=== PATIENT | female | born 1945 | race American Indian/Alaskan Native ===

== ENCOUNTER → 2016-05-26 | Outpatient (CLI) | payer MEDICARE, MEDICAID | END | disposition home or self-care (01) | LOC: MW.CHIM 09:51 | PROVIDERS: ATTEND Internal Medicine | DX: I25.10 Atherosclerotic heart disease of native coronary artery without angina pectoris (principal); I50.22 Chronic systolic (congestive) heart failure; E11.9 Type 2 diabetes mellitus without complications; Z79.4 Long term (current) use of insulin | CPT/HCPCS: 36415; 80048; 85025; 99214 ==

== ENCOUNTER → 2016-06-10 | Outpatient (CLI) | payer MEDICARE, MEDICAID | LOC: MW.CHIM 10:31 | PROVIDERS: ATTEND Internal Medicine | DX: E78.5 Hyperlipidemia, unspecified (principal); R06.09 Other forms of dyspnea | CPT/HCPCS: 36415; 80053; 82550; 83880; G0463 ==

== ENCOUNTER → 2016-07-11 | Outpatient (CLI) | payer MEDICARE, MEDICAID | LOC: MW.CHIM 08:00 | PROVIDERS: ATTEND Internal Medicine | DX: I42.0 Dilated cardiomyopathy (principal); E78.5 Hyperlipidemia, unspecified; I50.9 Heart failure, unspecified; I25.10 Atherosclerotic heart disease of native coronary artery without angina pectoris | CPT/HCPCS: 99214 ==

== ENCOUNTER → 2016-08-05 | Outpatient (CLI) | payer MEDICARE, MEDICAID | LOC: MW.LAB 13:06 | PROVIDERS: ATTEND Internal Medicine | DX: I12.9 Hypertensive chronic kidney disease with stage 1 through stage 4 chronic kidney disease, or unspecified chronic kidney disease (principal); N18.4 Chronic kidney disease, stage 4 (severe); D63.1 Anemia in chronic kidney disease; E87.2 Acidosis | CPT/HCPCS: 36415; 80069; 82310; 82652; 83516; 83883; 83970; 84165; 84550; 85025; 86038; 86160; 86225; 86235; 86256; 86334; 86803; 87340; G0463 ==

== ENCOUNTER → 2016-08-07 | Outpatient (CLI) | payer MEDICARE, MEDICAID ==
--- NOTE | 2016-08-08 15:34 | US ---
EXAM DATE: 08/07/16 PATIENT'S AGE: 70 Patient: ANJEL OWUSU Facility: [place], [place] Site . Site : 1945 Study: US Abdomen [id number]/27/2017 10:28:48 AM Ordering Physician: Helio Strauss Final Report: INDICATION: Severe chronic kidney disease, stage IV. History of donated right kidney. TECHNIQUE: Ultrasound renal bilateral. Abdul-scale and color Doppler sonographic images were acquired of the kidneys and urinary bladder. COMPARISON: None FINDINGS: Right kidney: Absent. Left kidney: 11.8 cm. Normal echotexture and cortex. No masses, stones, or hydronephrosis. Left renal artery: Proximal - PSV 49.9 cm/s, RI 0.9 Mid - PSV 36.9 cm/s, RI 0l.91 Distal - 43 cm/s, RI 1.0 Left kidney: Hilar - PSV 35.6 cm/s, RI 1.0 Inferior arcuate artery - PSV 22.7 cm/s, RI 0.9 Mid arcuate artery - PSV 14.6 cm/s, RI 0.87 Bladder: Normal in caliber and appearance. Color Doppler images demonstrate left ureteral jet. Incidental note of right pleural effusion and trace abdominal ascites. IMPRESSION: 1. Surgically absent right kidney with normal sonographic appearance of left kidney. No hydronephrosis. 2. Right pleural effusion. 3. Trace abdominal ascites. Dictated by Servando Pedro MD @ Aug 07 2016 3:53PM (Electronic Signature) Report Signed by Proxy. YESSICA
--- NOTE | 2016-08-14 16:30 | US ---
EXAM DATE: 08/07/16 PATIENT'S AGE: 70 Patient: ANJEL OWUSU Facility: [place], [place] Site . Site : 1945 Study: US Abdomen [id number]/27/2017 10:28:48 AM Ordering Physician: Helio Strauss Final Report: INDICATION: Severe chronic kidney disease, stage IV. History of donated right kidney. TECHNIQUE: Ultrasound renal bilateral. Abdul-scale and color Doppler sonographic images were acquired of the kidneys and urinary bladder. COMPARISON: None FINDINGS: Right kidney: Absent. Left kidney: 11.8 cm. Normal echotexture and cortex. No masses, stones, or hydronephrosis. Left renal artery: Proximal - PSV 49.9 cm/s, RI 0.9 Mid - PSV 36.9 cm/s, RI 0l.91 Distal - 43 cm/s, RI 1.0 Left kidney: Hilar - PSV 35.6 cm/s, RI 1.0 Inferior arcuate artery - PSV 22.7 cm/s, RI 0.9 Mid arcuate artery - PSV 14.6 cm/s, RI 0.87 Bladder: Normal in caliber and appearance. Color Doppler images demonstrate left ureteral jet. Incidental note of right pleural effusion and trace abdominal ascites. IMPRESSION: 1. Surgically absent right kidney with normal sonographic appearance of left kidney. No hydronephrosis. 2. Right pleural effusion. 3. Trace abdominal ascites. Dictated by Servando Pedro MD @ Aug 07 2016 3:53PM (Electronic Signature) Report Signed by Proxy. YESSICA
== END ==
LOC: MW.US 08:55
PROVIDERS: ATTEND Internal Medicine
DX: E87.2 Acidosis (principal); N18.4 Chronic kidney disease, stage 4 (severe); Z90.5 Acquired absence of kidney; J90 Pleural effusion, not elsewhere classified
CPT/HCPCS: 76775; 76775-26; 93979; 93979-26

== ENCOUNTER 2017-08-08 16:44 | Emergency (ER) | payer MEDICAID, MEDICARE ==
[2017-08-08] MEDS ORDERED: Sodium Chloride 0.9% 2.5 ML Syringe FLUSH PRN (16:59)
[2017-08-08] MEDS ORDERED: Ondansetron 4 MG/2 ML SDV IVPUSH ONE (16:59)
[2017-08-08] MEDS ORDERED: Sodium Chloride 0.9% 10 ML Syringe FLUSH PRN (16:59)
[2017-08-08] MEDS ORDERED: Sodium Chloride 0.9% 250 ML IV SCH (17:00)
--- NOTE | 2017-08-08 17:04 | EDM.PDOC ---
ED HPI GENERAL MEDICAL PROBLEM - General Chief Complaint: General Stated Complaint: BP ISSUES Time Seen by Provider: 08/08/17 16:50 - History of Present Illness INITIAL COMMENTS - FREE TEXT/NARRATIVE: HISTORY AND PHYSICAL: History of present illness: The patient is a 71-year-old female who has been on hemodialysis for the last 8 months due to hypertension diabetes and her normal dialysis days are Thursday and Thursday; she presents after undergoing dialysis today and removing over 3-1/2 L of fluid with not feeling right, low energy and decreased mental status and nausea with some dry heaves. According to the family at bedside she missed dialysis extremities the week before last and then on Thursday and of this week she had dialysis runs which were not maxed out. Today the increase the fluid that they took off and she started having the symptoms. The patient has a history of only having one kidney and is new to our dialysis unit. The patient does make urine and a regular amount and has no cardiac disease but does have a history of CHF hypothyroidism diabetes and this new renal failure. Currently in the ED she is awake and alert and she is complaining that she just feels very weak and she feels nauseated. Dialysis unit did not contact us with this case but the patient and her family came appear independently. She has a history of a left upper extremity fistula for this dialysis. She has no abdominal pain no chest pain and no shortness of breath. She has no focal neurologic weakness tingling and did not fall. Patient states that when she left dialysis her blood pressure was 120 systolic and she did not have any symptoms until she got up the exit and started having symptoms Review of systems: As per history of present illness and below otherwise all systems reviewed and negative. Past medical history: As per history of present illness and as reviewed below otherwise noncontributory. Surgical history: As per history of present illness and as reviewed below otherwise noncontributory. Social history: No reported history of drug or alcohol abuse. Family history: As per history of present illness and as reviewed below otherwise noncontributory. Physical exam: General: Well-developed well-nourished female who is speaking clearly and easily in the ED and is in no overt distress and vital signs are noted by me HEENT: Atraumatic, normocephalic, pupils reactive, negative for conjunctival pallor or scleral icterus, mucous membranes moist, throat clear, neck supple, nontender, trachea midline. Lungs: Clear to auscultation, breath sounds equal bilaterally, chest nontender. No work of breathing stridor or wheezing Heart: S1S2, regular, negative for clicks, rubs, or JVD. Abdomen: Soft, nondistended, nontender. Negative for masses or hepatosplenomegaly. Negative for costovertebral tenderness. Pelvis: Stable nontender. Genitourinary: Deferred. Rectal: Deferred. Extremities: Atraumatic, negative for cords or calf pain. Neurovascular unremarkable. There is a fistula with dressing present on the left upper arm and the patient has full range of motion without defects or deficits and no pedal edema Neuro: Awake, alert, oriented. Cranial nerves II through XII unremarkable. Cerebellum unremarkable. Motor and sensory unremarkable throughout. Exam nonfocal. Skin: There is no diaphoresis and turgor is within normal limits. There are no overt rashes or lesions appreciated Diagnostics: EKG chest x-ray CBC CMP UA Therapeutics: IV O2 monitor gentle IV fluids--2 50 mL bolus Repeat blood pressures are 105/61 and 108/65 after fluids. Patient says she has no nausea and she is feeling better. I've advised her not to take her blood pressure medications this evening. We'll plan on discharge home and the patient is comfortable with this care plan. Impression: Hypotension status post hemodialysis improving Definitive disposition and diagnosis as appropriate pending reevaluation and review of above. lower back Pain Score (Numeric/FACES): 6 - Related Data Allergies Allergy/AdvReac Type Severity Reaction Status Date / Time hydrochlorothiazide Allergy Airway Verified 08/08/17 16:54 Tightness hydrocodone Allergy Rash Verified 08/08/17 16:54 lisinopril Allergy Airway Verified 08/08/17 16:54 Tightness Home Meds: Home Meds Albuterol Sulfate [Proair Hfa] 1 - 2 puff IH Q4H PRN 05/11/15 [History] Gabapentin [Neurontin] 300 mg PO TID 05/11/15 [History] Losartan [Cozaar] 100 mg PO DAILY 05/11/15 [History] hydrALAZINE [Apresoline] 25 mg PO Q12HR 05/11/15 [History] metFORMIN HCl [Metformin HCl ER] 750 mg PO BIDMEALS 05/11/15 [History] traMADol [Ultram] 50 mg PO TID PRN 05/11/15 [History] Furosemide 1 tab PO DAILY 12/19/15 [History] Sertraline HCl [Zoloft] 100 mg PO DAILY 12/19/15 [History] cloNIDine [Catapres] 0.1 mg PO DAILY 12/19/15 [History] Furosemide [Lasix] 40 mg PO ASDIRECTED #1 12/24/15 [Rx] Insuln Asp Prot/Insulin Aspart [NovoLOG Mix 70-30] 10 unit SUBCUT BIDMEALS pen 12/24/15 [Rx] Isosorbide Mononitrate [Imdur] 30 mg PO DAILY #30 tab.er 12/24/15 [Rx] Levothyroxine 75 mcg PO ACBREAKFAST #30 tablet 12/24/15 [Rx] Nystatin [Nystop] 1 applic TOP TID #1 bottle 12/24/15 [Rx] Spironolactone 50 mg PO DAILY #30 tablet 12/24/15 [Rx] Past Medical History Cardiovascular History: Reports: Heart Failure, High Cholesterol, Hypertension, SOB on Exertion Respiratory History: Reports: COPD Gastrointestinal History: Reports: None 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 (See Below) Other OB/BYN History: hysterectomy Musculoskeletal History: Reports: Back Pain, Chronic Endocrine/Metabolic History: Reports: Diabetes, Type II, Hypothyroidism, Obesity /BMI 30+ - Infectious Disease History Infectious Disease History: Reports: Mumps - Past Surgical History Female Surgical History: Reports: Other (See Below) Musculoskeletal Surgical History: Reports: ORIF, Other (See Below) Social & Family History - Family History Cardiac: Reports: Other (See Below) Other Cardiac Family History: sister had heart problems Musculoskeletal: Reports: Arthritis Endocrine/Metabolic: Reports: Diabetes, type II Oncologic: Reports: Other (See Below) Other Oncologic Family History: stomach - Tobacco Use Smoking Status *Q: Former Smoker Years of Tobacco use: 20 Second Hand Smoke Exposure: No - Alcohol Use Days Per Week of Alcohol Use: 1 Number of Drinks Per Day: 3 Total Drinks Per Week: 3 - Recreational Drug Use Recreational Drug Use: No - Living Situation & Occupation Living situation: Reports: Alone ED ROS GENERAL - Review of Systems Review Of Systems: ROS reveals no pertinent complaints other than HPI. ED EXAM, GENERAL - Physical Exam Exam: See Below (see dictation) Course - Vital Signs Last Recorded V/S: Last Vital Signs Temp 35.7 C 08/08/17 17:42 Pulse 78 08/08/17 18:33 Resp 18 08/08/17 18:33 BP 108/57 L 08/08/17 18:33 Pulse Ox 93 L 08/08/17 18:33 - Orders/Labs/Meds Orders: Active Orders 24 hr Category Date Time Status Blood Glucose Check, Bedside [RC] ONETIME Care 08/08/17 16:58 Active Cardiac Monitoring [RC] . DIRECTED Care 08/08/17 16:58 Active EKG Documentation Completion [RC] STAT Care 08/08/17 16:58 Active Oxygen Therapy, ED [RC] ASDIRECTED Care 08/08/17 16:58 Active Pulse Oximetry [RC] ASDIRECTED Care 08/08/17 16:58 Active Chest 1V Frontal [CR] Stat Exams 08/08/17 16:59 Taken UA W/MICROSCOPIC [URIN] Stat Lab 08/08/17 17:48 Ordered Sodium Chloride 0.9% [Normal Saline] 250 ml Med 08/08/17 17:00 Active IV STAT Sodium Chloride 0.9% [Saline Flush] Med 08/08/17 16:59 Active 10 ml FLUSH ASDIRECTED PRN Sodium Chloride 0.9% [Saline Flush] Med 08/08/17 16:59 Active 2.5 ml FLUSH ASDIRECTED PRN Saline Lock Insert [OM.PC] Stat Oth 08/08/17 16:58 Ordered Medication Orders Sodium Chloride (Normal Saline) 250 mls @ 999 mls/hr IV STAT RONY Last Admin: 08/08/17 17:07 Dose: 999 mls/hr Sodium Chloride (Saline Flush) 10 ml FLUSH ASDIRECTED PRN PRN Reason: Keep Vein Open Last Admin: 08/08/17 17:18 Dose: 10 ml Sodium Chloride (Saline Flush) 2.5 ml FLUSH ASDIRECTED PRN PRN Reason: Keep Vein Open Last Admin: 08/08/17 17:18 Dose: 2.5 ml Labs: Laboratory Tests 08/08/17 08/08/17 08/08/17 Range/Units 17:00 17:00 17:02 WBC 8.67 (4.0-11.0) K/uL RBC 4.65 (4.30-5.90) M/uL Hgb 14.0 (12.0-16.0) g/dL Hct 42.9 (36.0-46.0) % MCV 92.3 (80.0-98.0) fL MCH 30.1 (27.0-32.0) pg MCHC 32.6 (31.0-37.0) g/dL RDW Std Deviation 49.4 (28.0-62.0) fl RDW Coeff of Alirio 15 (11.0-15.0) % Plt Count 163 (150-400) K/uL MPV 10.10 (7.40-12.00) fL Neut % (Auto) 58.6 (48.0-80.0) % Lymph % (Auto) 26.0 (16.0-40.0) % [place] % (Auto) 7.5 (0.0-15.0) % Eos % (Auto) 7.2 H (0.0-7.0) % Baso % (Auto) 0.7 (0.0-1.5) % Neut # (Auto) 5.1 (1.4-5.7) K/uL Lymph # (Auto) 2.3 (0.6-2.4) K/uL [place] # (Auto) 0.7 (0.0-0.8) K/uL Eos # (Auto) 0.6 (0.0-0.7) K/uL Baso # (Auto) 0.1 (0.0-0.1) K/uL Nucleated RBC % 0.0 /100WBC Nucleated RBCs # 0 K/uL Sodium 137 (136-145) mmol/L Potassium 3.8 (3.5-5.1) mmol/L Chloride 96 L (98-107) mmol/L Carbon Dioxide 29.7 (21.0-32.0) mmol/L BUN 24 H (7.0-18.0) mg/dL Creatinine 3.3 H (0.6-1.0) mg/dL Est Cr Clr Drug Dosing 13.89 mL/min Estimated GFR (MDRD) 13.9 ml/min Glucose 196 H (74-106) mg/dL POC Glucose 191 H (60-110) mg/dL Calcium 9.6 (8.5-10.1) mg/dL Total Bilirubin 0.5 (0.2-1.0) mg/dL AST 28 (15-37) IU/L ALT 12 L (14-63) IU/L Alkaline Phosphatase 110 (46-116) U/L Total Protein 9.9 H (6.4-8.2) g/dL Albumin 3.9 (3.4-5.0) g/dL Globulin 6.0 H (2.0-3.5) g/dL Albumin/Globulin Ratio 0.7 L (1.3-2.8) Urine Color Urine Appearance Urine pH (5.0-8.0) Ur Specific [place] (1.001-1.035) Urine Protein (NEGATIVE) mg/dL Urine Glucose (UA) (NEGATIVE) mg/dL Urine Ketones (NEGATIVE) mg/dL Urine Occult Blood (NEGATIVE) Urine Nitrite (NEGATIVE) Urine Bilirubin (NEGATIVE) Urine Urobilinogen (<2.0) EU/dL Ur Leukocyte Esterase (NEGATIVE) Urine RBC (0-2/HPF) Urine WBC (0-5/HPF) Ur Epithelial Cells (NONE-FEW) Urine Bacteria (NEGATIVE) 08/08/17 Range/Units 17:48 WBC (4.0-11.0) K/uL RBC (4.30-5.90) M/uL Hgb (12.0-16.0) g/dL Hct (36.0-46.0) % MCV (80.0-98.0) fL MCH (27.0-32.0) pg MCHC (31.0-37.0) g/dL RDW Std Deviation (28.0-62.0) fl RDW Coeff of Alirio (11.0-15.0) % Plt Count (150-400) K/uL MPV (7.40-12.00) fL Neut % (Auto) (48.0-80.0) % Lymph % (Auto) (16.0-40.0) % [place] % (Auto) (0.0-15.0) % Eos % (Auto) (0.0-7.0) % Baso % (Auto) (0.0-1.5) % Neut # (Auto) (1.4-5.7) K/uL Lymph # (Auto) (0.6-2.4) K/uL [place] # (Auto) (0.0-0.8) K/uL Eos # (Auto) (0.0-0.7) K/uL Baso # (Auto) (0.0-0.1) K/uL Nucleated RBC % /100WBC Nucleated RBCs # K/uL Sodium (136-145) mmol/L Potassium (3.5-5.1) mmol/L Chloride (98-107) mmol/L Carbon Dioxide (21.0-32.0) mmol/L BUN (7.0-18.0) mg/dL Creatinine (0.6-1.0) mg/dL Est Cr Clr Drug Dosing mL/min Estimated GFR (MDRD) ml/min Glucose (74-106) mg/dL POC Glucose (60-110) mg/dL Calcium (8.5-10.1) mg/dL Total Bilirubin (0.2-1.0) mg/dL AST (15-37) IU/L ALT (14-63) IU/L Alkaline Phosphatase (46-116) U/L Total Protein (6.4-8.2) g/dL Albumin (3.4-5.0) g/dL Globulin (2.0-3.5) g/dL Albumin/Globulin Ratio (1.3-2.8) Urine Color YELLOW Urine Appearance HAZY Urine pH 8.5 H (5.0-8.0) Ur Specific [place] 1.020 (1.001-1.035) Urine Protein >=300 (NEGATIVE) mg/dL Urine Glucose (UA) 100 H (NEGATIVE) mg/dL Urine Ketones NEGATIVE (NEGATIVE) mg/dL Urine Occult Blood NEGATIVE (NEGATIVE) Urine Nitrite NEGATIVE (NEGATIVE) Urine Bilirubin NEGATIVE (NEGATIVE) Urine Urobilinogen 0.2 (<2.0) EU/dL Ur Leukocyte Esterase NEGATIVE (NEGATIVE) Urine RBC 1-2 (0-2/HPF) Urine WBC 2-4 (0-5/HPF) Ur Epithelial Cells MODERATE (NONE-FEW) Urine Bacteria FEW (NEGATIVE) Meds: Medications Generic Name Dose Route Start Last Admin Trade Name Freq PRN Reason Stop Dose Admin Sodium Chloride 250 mls @ 999 mls/hr 08/08/17 17:00 08/08/17 17:07 Normal Saline IV 999 mls/hr STAT RONY Administration Sodium Chloride 10 ml 08/08/17 16:59 08/08/17 17:18 Saline Flush FLUSH 10 ml ASDIRECTED PRN Administration Keep Vein Open Sodium Chloride 2.5 ml 08/08/17 16:59 08/08/17 17:18 Saline Flush FLUSH 2.5 ml ASDIRECTED PRN Administration Keep Vein Open Discontinued Medications Generic Name Dose Route Start Last Admin Trade Name Freq PRN Reason Stop Dose Admin Ondansetron HCl 4 mg 08/08/17 16:59 08/08/17 17:08 Zofran IVPUSH 08/08/17 17:00 4 mg ONETIME ONE Administration Departure - Departure Time of Disposition: 18:49 Disposition: Home, Self-Care 01 Condition: Good Clinical Impression: Hypotension Qualifiers: Hypotension type: unspecified hypotension type Qualified Code(s): I95.9 - Hypotension, unspecified - Discharge Information Referrals: PCP,Unknown [Primary Care Provider] - Forms: ED Department Discharge Additional Instructions: The following information is given to patients seen in the emergency department who are being discharged to home. This information is to outline your options for follow-up care. We provide all patients seen in our emergency department with a follow-up referral. The need for follow-up, as well as the timing and circumstances, are variable depending upon the specifics of your emergency department visit. If you don't have a primary care physician on staff, we will provide you with a referral. We always advise you to contact your personal physician following an emergency department visit to inform them of the circumstance of the visit and for follow-up with them and/or the need for any referrals to a consulting specialist. The emergency department will also refer you to a specialist when appropriate. This referral assures that you have the opportunity for followup care with a specialist. All of these measure are taken in an effort to provide you with optimal care, which includes your followup. Under all circumstances we always encourage you to contact your private physician who remains a resource for coordinating your care. When calling for followup care, please make the office aware that this follow-up is from your recent emergency room visit. If for any reason you are refused follow-up, please contact the [facility] emergency department at and ask to speak to the emergency department charge nurse. [facility] [address] [place] [address] Please go to your dialysis appointment as scheduled on Thursday and do not take your blood pressure medications this evening. Please eat meals and rest. Return to ER as needed and as discussed - My Orders Last 24 Hours: My Active Orders 08/08/17 16:58 Blood Glucose Check, Bedside [RC] ONETIME Cardiac Monitoring [RC] . DIRECTED EKG Documentation Completion [RC] STAT Oxygen Therapy, ED [RC] ASDIRECTED Pulse Oximetry [RC] ASDIRECTED Saline Lock Insert [OM.PC] Stat 08/08/17 16:59 Chest 1V Frontal [CR] Stat Sodium Chloride 0.9% [Saline Flush] 10 ml FLUSH ASDIRECTED PRN Sodium Chloride 0.9% [Saline Flush] 2.5 ml FLUSH ASDIRECTED PRN 08/08/17 17:00 Sodium Chloride 0.9% [Normal Saline] 250 ml IV STAT 08/08/17 17:48 UA W/MICROSCOPIC [URIN] Stat - Assessment/Plan Last 24 Hours: My Active Orders 08/08/17 16:58 Blood Glucose Check, Bedside [RC] ONETIME Cardiac Monitoring [RC] . DIRECTED EKG Documentation Completion [RC] STAT Oxygen Therapy, ED [RC] ASDIRECTED Pulse Oximetry [RC] ASDIRECTED Saline Lock Insert [OM.PC] Stat 08/08/17 16:59 Chest 1V Frontal [CR] Stat Sodium Chloride 0.9% [Saline Flush] 10 ml FLUSH ASDIRECTED PRN Sodium Chloride 0.9% [Saline Flush] 2.5 ml FLUSH ASDIRECTED PRN 08/08/17 17:00 Sodium Chloride 0.9% [Normal Saline] 250 ml IV STAT 08/08/17 17:48 UA W/MICROSCOPIC [URIN] Stat
[2017-08-08 19:05] VITALS: BP 114/62
--- NOTE | 2017-08-10 14:21 | CR ---
EXAM DATE: 08/08/17 PATIENT'S AGE: 71 Patient: ANJEL OWUSU Facility: [place], [place] Site . Site : 1945 Study: XRay Chest [id number]/28/2018 6:20:39 PM Ordering Physician: Shari Schultz Final Report: INDICATION: pain/sob/ bp issues FINDINGS: A single portable chest x-ray shows a normal cardiac silhouette. The lungs are hypoventilated and show no focal pulmonary opacities. Sharp pleural margins. No pneumothorax. Impression : No evidence of acute pulmonary abnormalities. Dictated by Mikal Harrington MD @ 08/08/2017 6:57:47 PM Dictated by: Mikal Harrington MD @ 08/08/2017 18:58:01 (Electronic Signature) Report Signed by Proxy. [facility]ITALScotty
== END 2017-08-08 19:05 | disposition home or self-care (01) ==
LOC: MW.ED 16:44
DX: I95.9 Hypotension, unspecified (principal); I11.0 Hypertensive heart disease with heart failure; I50.9 Heart failure, unspecified; E78.00 Pure hypercholesterolemia, unspecified; J44.9 Chronic obstructive pulmonary disease, unspecified; E11.9 Type 2 diabetes mellitus without complications; N19 Unspecified kidney failure; E66.9 Obesity, unspecified; Z87.891 Personal history of nicotine dependence; Z88.5 Allergy status to narcotic agent; Z88.8 Allergy status to other drugs, medicaments and biological substances; Z79.4 Long term (current) use of insulin; Z79.899 Other long term (current) drug therapy; Z68.30 Body mass index [BMI] 30.0-30.9, adult; Z99.2 Dependence on renal dialysis
CPT/HCPCS: 71045; 80053; 81001; 82962; 85025; 93005; 96374; 99285; J2405; J7050; 99284

== ENCOUNTER 2017-10-16 17:49 | Observation (INO) | payer MEDICAID ==
[2017-10-16] MEDS ORDERED: Sodium Chloride 0.9% 2.5 ML Syringe FLUSH PRN (17:59)
[2017-10-16] MEDS ORDERED: Sodium Chloride 0.9% 10 ML Syringe FLUSH PRN (17:59)
[2017-10-16] MEDS ORDERED: Sodium Chloride 0.9% 500 ML IV SCH (18:00)
--- NOTE | 2017-10-16 18:13 | EDM.PDOC ---
ED HPI GENERAL MEDICAL PROBLEM - General Chief Complaint: Neuro Symptoms/Deficits Stated Complaint: DIZZY Time Seen by Provider: 10/16/17 20:20 Source of Information: Reports: Patient History Limitations: Reports: No Limitations - History of Present Illness INITIAL COMMENTS - FREE TEXT/NARRATIVE: HISTORY AND PHYSICAL: History of present illness: [Crissy is a 72-year-old female here for dizzinss. Patient states she was sitting outside smoking a cigarette after finishing dialysis about 10 minutes prior. She states she started feeling dizzy while sitting there. She denies any chest pain/pressure, SOB, headache, palpitations. She denies injury or fall. She reports that she feels weak and eyes blurry. Patients relative reports she had 1L taken off today. Patient had similar episode in July after she had dialysis. Patient given IV fluids for hypotension. Past medical history of hypertension, diabetes, hypothyroidism. She reports history of CHF. ] Review of systems: As per history of present illness and below otherwise all systems reviewed and negative. Past medical history: As per history of present illness and as reviewed below otherwise noncontributory. Surgical history: As per history of present illness and as reviewed below otherwise noncontributory. Social history: No reported history of drug or alcohol abuse. Family history: As per history of present illness and as reviewed below otherwise noncontributory. Physical exam: HEENT: Atraumatic, normocephalic, pupils reactive, negative for conjunctival pallor or scleral icterus, mucous membranes moist, throat clear, neck supple, nontender, trachea midline. Lungs: Clear to auscultation, breath sounds equal bilaterally, chest nontender. Heart: S1S2, regular, negative for clicks, rubs, or JVD. Abdomen: Soft, nondistended, nontender. Negative for masses or hepatosplenomegaly. Negative for costovertebral tenderness. Pelvis: Stable nontender. Genitourinary: Deferred. Rectal: Deferred. Extremities: Atraumatic, negative for cords or calf pain. Neurovascular unremarkable. Neuro: Awake, alert, oriented. Cranial nerves II through XII unremarkable. Cerebellum unremarkable. Motor and sensory unremarkable throughout. Exam nonfocal. Notes: Diagnostics: [CBC, CMP, Troponin, UA, PT/INR EKG - borderline ST depression] Therapeutics: [IV NS 500 mL x 2] Impression: [Hypotension] Plan: [Discussed with Dr. Morales, patient accepted for admission for observation on telemetry] Definitive disposition and diagnosis as appropriate pending reevaluation and review of above. - Related Data Allergies Allergy/AdvReac Type Severity Reaction Status Date / Time hydrochlorothiazide Allergy Airway Verified 10/16/17 17:52 Tightness hydrocodone Allergy Rash Verified 10/16/17 17:52 lisinopril Allergy Airway Verified 10/16/17 17:52 Tightness Home Meds: Home Meds Albuterol Sulfate [Proair Hfa] 1 - 2 puff IH Q4H PRN 05/11/15 [History] Gabapentin [Neurontin] 300 mg PO TID 05/11/15 [History] Losartan [Cozaar] 100 mg PO DAILY 05/11/15 [History] hydrALAZINE [Apresoline] 25 mg PO Q12HR 05/11/15 [History] metFORMIN HCl [Metformin HCl ER] 750 mg PO BIDMEALS 05/11/15 [History] traMADol [Ultram] 50 mg PO TID PRN 05/11/15 [History] Furosemide 1 tab PO DAILY 12/19/15 [History] Sertraline HCl [Zoloft] 100 mg PO DAILY 12/19/15 [History] cloNIDine [Catapres] 0.1 mg PO DAILY 12/19/15 [History] Furosemide [Lasix] 40 mg PO ASDIRECTED #1 12/24/15 [Rx] Insuln Asp Prot/Insulin Aspart [NovoLOG Mix 70-30] 10 unit SUBCUT BIDMEALS pen 12/24/15 [Rx] Isosorbide Mononitrate [Imdur] 30 mg PO DAILY #30 tab.er 12/24/15 [Rx] Levothyroxine 75 mcg PO ACBREAKFAST #30 tablet 12/24/15 [Rx] Nystatin [Nystop] 1 applic TOP TID #1 bottle 12/24/15 [Rx] Spironolactone 50 mg PO DAILY #30 tablet 12/24/15 [Rx] Past Medical History HEENT History: Reports: None Cardiovascular History: Reports: Heart Failure, High Cholesterol, Hypertension, SOB on Exertion Respiratory History: Reports: COPD Gastrointestinal History: Reports: None Genitourinary History: Reports: None PRODUCTION CONTROL COORDINATOR History: Reports: Other (See Below) Other PRODUCTION CONTROL COORDINATOR History: hysterectomy Musculoskeletal History: Reports: Back Pain, Chronic Neurological History: Reports: None Psychiatric History: Reports: None Endocrine/Metabolic History: Reports: Diabetes, Type II, Hypothyroidism, Obesity /BMI 30+ Hematologic History: Reports: None Immunologic History: Reports: None Oncologic (Cancer) History: Reports: None Dermatologic History: Reports: None - Infectious Disease History Infectious Disease History: Reports: Hepatitis C - Past Surgical History Head Surgeries/Procedures: Reports: None HEENT Surgical History: Reports: None Cardiovascular Surgical History: Reports: None Respiratory Surgical History: Reports: None GI Surgical History: Reports: None Female Surgical History: Reports: Other (See Below) Neurological Surgical History: Reports: None Musculoskeletal Surgical History: Reports: ORIF, Other (See Below) Oncologic Surgical History: Reports: None Dermatological Surgical History: Reports: None Social & Family History - Family History Family Medical History: Noncontributory Cardiac: Reports: Other (See Below) Other Cardiac Family History: sister had heart problems Musculoskeletal: Reports: Arthritis Endocrine/Metabolic: Reports: Diabetes, type II Oncologic: Reports: Other (See Below) Other Oncologic Family History: stomach - Tobacco Use Smoking Status *Q: Current Every Day Smoker Years of Tobacco use: 50 Packs/Tins Daily: 0.1 - Caffeine Use Caffeine Use: Reports: Coffee - Recreational Drug Use Recreational Drug Use: No - Living Situation & Occupation Living situation: Reports: Alone ED ROS GENERAL - Review of Systems Review Of Systems: ROS reveals no pertinent complaints other than HPI. ED EXAM, NEURO - Physical Exam Exam: See Below Course - Vital Signs Last Recorded V/S: Last Vital Signs Temp 36.0 C 10/16/17 17:53 Pulse 76 10/16/17 18:25 Resp 24 H 10/16/17 18:25 BP 87/53 L 10/16/17 18:25 Pulse Ox 92 L 10/16/17 18:25 - Orders/Labs/Meds Orders: Active Orders 24 hr Category Date Time Status Admission Status [Patient Status] [ADT] Stat ADT 10/16/17 20:16 Ordered Cardiac Monitoring [RC] . DIRECTED Care 10/16/17 17:58 Active EKG Documentation Completion [RC] STAT Care 10/16/17 17:58 Active Pulse Oximetry [RC] ASDIRECTED Care 10/16/17 17:58 Active CULTURE URINE [RM] Stat Lab 10/16/17 17:59 Ordered UA W/MICROSCOPIC [URIN] Stat Lab 10/16/17 17:59 Ordered Sodium Chloride 0.9% [Normal Saline] 1,000 ml Med 10/16/17 18:50 Active IV ONETIME Sodium Chloride 0.9% [Normal Saline] 500 ml Med 10/16/17 18:00 Active IV STAT Sodium Chloride 0.9% [Saline Flush] Med 10/16/17 17:59 Active 10 ml FLUSH ASDIRECTED PRN Sodium Chloride 0.9% [Saline Flush] Med 10/16/17 17:59 Active 2.5 ml FLUSH ASDIRECTED PRN Saline Lock Insert [OM.PC] Stat Oth 10/16/17 17:58 Ordered Medication Orders Sodium Chloride (Normal Saline) 500 mls @ 999 mls/hr IV STAT [facility] Last Admin: 10/16/17 18:14 Dose: 999 mls/hr Sodium Chloride (Normal Saline) 1,000 mls @ 125 mls/hr IV ONETIME ONE Stop: 10/17/17 02:49 Last Admin: 10/16/17 18:50 Dose: 999 mls/hr Sodium Chloride (Saline Flush) 10 ml FLUSH ASDIRECTED PRN PRN Reason: Keep Vein Open Sodium Chloride (Saline Flush) 2.5 ml FLUSH ASDIRECTED PRN PRN Reason: Keep Vein Open Labs: Laboratory Tests 10/16/17 10/16/17 10/16/17 Range/Units 17:59 17:59 17:59 WBC 9.48 (4.0-11.0) K/uL RBC 4.08 L (4.30-5.90) M/uL Hgb 12.4 (12.0-16.0) g/dL Hct 38.2 (36.0-46.0) % MCV 93.6 (80.0-98.0) fL MCH 30.4 (27.0-32.0) pg MCHC 32.5 (31.0-37.0) g/dL RDW Std Deviation 56.4 (28.0-62.0) fl RDW Coeff of Alirio 16 H (11.0-15.0) % Plt Count 197 (150-400) K/uL MPV 9.50 (7.40-12.00) fL Neut % (Auto) 47.8 L (48.0-80.0) % Lymph % (Auto) 36.7 (16.0-40.0) % [place] % (Auto) 6.1 (0.0-15.0) % Eos % (Auto) 8.6 H (0.0-7.0) % Baso % (Auto) 0.8 (0.0-1.5) % Neut # (Auto) 4.5 (1.4-5.7) K/uL Lymph # (Auto) 3.5 H (0.6-2.4) K/uL [place] # (Auto) 0.6 (0.0-0.8) K/uL Eos # (Auto) 0.8 H (0.0-0.7) K/uL Baso # (Auto) 0.1 (0.0-0.1) K/uL Nucleated RBC % 0.0 /100WBC Nucleated RBCs # 0 K/uL INR 0.96 Sodium 136 (136-145) mmol/L Potassium 2.9 L (3.5-5.1) mmol/L Chloride 96 L (98-107) mmol/L Carbon Dioxide 29.9 (21.0-32.0) mmol/L BUN 9 (7.0-18.0) mg/dL Creatinine 2.5 H (0.6-1.0) mg/dL Est Cr Clr Drug Dosing 18.08 mL/min Estimated GFR (MDRD) 19.0 ml/min Glucose 160 H (74-106) mg/dL Calcium 9.2 (8.5-10.1) mg/dL Total Bilirubin 0.4 (0.2-1.0) mg/dL AST 28 (15-37) IU/L ALT 30 (14-63) IU/L Alkaline Phosphatase 149 H (46-116) U/L Troponin I < 0.050 (0.000-0.056) ng/mL Total Protein 9.1 H (6.4-8.2) g/dL Albumin 3.7 (3.4-5.0) g/dL Globulin 5.4 H (2.0-3.5) g/dL Albumin/Globulin Ratio 0.7 L (1.3-2.8) Lipase 223 (73-393) U/L Meds: Medications Generic Name Dose Route Start Last Admin Trade Name Freq PRN Reason Stop Dose Admin Sodium Chloride 500 mls @ 999 mls/hr 10/16/17 18:00 10/16/17 18:14 Normal Saline IV 999 mls/hr STAT RONY Administration Sodium Chloride 1,000 mls @ 125 mls/hr 10/16/17 18:50 10/16/17 18:50 Normal Saline IV 10/17/17 02:49 999 mls/hr ONETIME ONE Administration Sodium Chloride 10 ml 10/16/17 17:59 Saline Flush FLUSH ASDIRECTED PRN Keep Vein Open Sodium Chloride 2.5 ml 10/16/17 17:59 Saline Flush FLUSH ASDIRECTED PRN Keep Vein Open Discontinued Medications Generic Name Dose Route Start Last Admin Trade Name Freq PRN Reason Stop Dose Admin Potassium Chloride 40 meq 10/16/17 19:43 Klor-Con M20 PO 10/16/17 19:44 ONETIME ONE Departure - Departure Time of Disposition: 20:19 Disposition: Refer to Observation Clinical Impression: Hypotension Qualifiers: Hypotension type: unspecified hypotension type Qualified Code(s): I95.9 - Hypotension, unspecified - Discharge Information Referrals: PCP,None [Primary Care Provider] - Forms: ED Department Discharge - My Orders Last 24 Hours: My Active Orders 10/16/17 17:58 Cardiac Monitoring [RC] . DIRECTED EKG Documentation Completion [RC] STAT Pulse Oximetry [RC] ASDIRECTED Saline Lock Insert [OM.PC] Stat 10/16/17 17:59 CULTURE URINE [RM] Stat UA W/MICROSCOPIC [URIN] Stat Sodium Chloride 0.9% [Saline Flush] 10 ml FLUSH ASDIRECTED PRN Sodium Chloride 0.9% [Saline Flush] 2.5 ml FLUSH ASDIRECTED PRN 10/16/17 18:00 Sodium Chloride 0.9% [Normal Saline] 500 ml IV STAT 10/16/17 18:50 Sodium Chloride 0.9% [Normal Saline] 1,000 ml IV ONETIME 10/16/17 20:16 Admission Status [Patient Status] [ADT] Stat - Assessment/Plan Last 24 Hours: My Active Orders 10/16/17 17:58 Cardiac Monitoring [RC] . DIRECTED EKG Documentation Completion [RC] STAT Pulse Oximetry [RC] ASDIRECTED Saline Lock Insert [OM.PC] Stat 10/16/17 17:59 CULTURE URINE [RM] Stat UA W/MICROSCOPIC [URIN] Stat Sodium Chloride 0.9% [Saline Flush] 10 ml FLUSH ASDIRECTED PRN Sodium Chloride 0.9% [Saline Flush] 2.5 ml FLUSH ASDIRECTED PRN 10/16/17 18:00 Sodium Chloride 0.9% [Normal Saline] 500 ml IV STAT 10/16/17 18:50 Sodium Chloride 0.9% [Normal Saline] 1,000 ml IV ONETIME 10/16/17 20:16 Admission Status [Patient Status] [ADT] Stat
[2017-10-16 18:33] LABS: CHLORIDE,CL 96 mmol/L (98-107); SODIUM,NA 136 mmol/L (136-145)
[2017-10-16] MEDS ORDERED: Sodium Chloride 0.9% 1,000 ML IV ONE (18:50)
--- NOTE | 2017-10-16 19:33 | CR ---
EXAM DATE: 10/16/17 PATIENT'S AGE: 72 Patient: ANJEL OWUSU Facility: [place], [place] Site . Site : 1945 Study: XRay Chest [id number]/[id number] 6:36:39 PM Ordering Physician: Doctor Camejo Final Report: Dizzy lethargic after dialysis Comparison chest x-ray 08/08/2017 FINDINGS: Low lung volumes. Slight prominence of the cardiac silhouette appears no acute airspace or interstitial process. No effusion or pneumothorax. IMPRESSION: 1. No acute pulmonary process. Dictated by Natalie Harrington MD @ Oct 16 2017 6:55PM (Electronic Signature) Report Signed by Proxy. YESSICA
[2017-10-16] MEDS ORDERED: Potassium Chloride 20 MEQ Tab.ER PO ONE (19:43)
--- NOTE | 2017-10-16 20:39 | PCM.HP ---
H&P History of Present Illness - General Admit Problem/Dx: Admission Diagnosis/Problem Admission Diagnosis/Problem Hypotension - History of Present Illness Initial Comments - Free Text/Narative: 72 yo female with pmh HTN, DM and ESRD who presents to the ED with dizziness. Patient does dialysis MWF but as she missed Thursday she doubled up on and Thursday. After dialysis today she was outside waiting for a ride when she became dizzy and lightheaded. She went to the ED where her blood pressure with in the 80s systolic. She reportedly got one liter removed yesterday and today. She feels fatigued. - Related Data Allergies/Adverse Reactions: Allergies Allergy/AdvReac Type Severity Reaction Status Date / Time hydrochlorothiazide Allergy Airway Verified 10/16/17 17:52 Tightness hydrocodone Allergy Rash Verified 10/16/17 17:52 lisinopril Allergy Airway Verified 10/16/17 17:52 Tightness Home Medications: Home Meds Albuterol Sulfate [Proair Hfa] 1 - 2 puff IH Q4H PRN 05/11/15 [History] Gabapentin [Neurontin] 300 mg PO QID 05/11/15 [History] Losartan [Cozaar] 100 mg PO DAILY 05/11/15 [History] traMADol [Ultram] 50 mg PO QID 05/11/15 [History] Sertraline HCl [Zoloft] 100 mg PO DAILY 12/19/15 [History] Albuterol [Proventil Neb Soln] 2.5 mg INH QID 10/17/17 [History] Calcium Acetate [PhosLo] 667 mg PO TIDMEALS 10/17/17 [History] Clopidogrel [Plavix] 75 mg PO DAILY 10/17/17 [History] Insuln Asp Prot/Insulin Aspart [NovoLOG Mix 70-30] 40 unit SUBCUT BIDMEALS 10/17 [History] Isosorbide Mononitrate [Imdur] 60 mg PO DAILY 10/17/17 [History] Levothyroxine Sodium 137 mcg PO ACBREAKFAST 10/17/17 [History] Losartan [Cozaar] 100 mg PO DAILY 10/17/17 [History] Metolazone 5 mg PO MOFR@0800 10/17/17 [History] Pantoprazole Sodium [Protonix] 40 mg PO DAILY 10/17/17 [History] Sevelamer HCl [Renagel] 1,600 mg PO TIDMEALS 10/17/17 [History] amLODIPine Besylate [Amlodipine Besylate] 5 mg PO DAILY 10/17/17 [History] atorvaSTATin Calcium [Atorvastatin Calcium] 80 mg PO BEDTIME 10/17/17 [History] Past Medical History HEENT History: Reports: None Cardiovascular History: Reports: Heart Failure, High Cholesterol, Hypertension, SOB on Exertion Respiratory History: Reports: COPD Gastrointestinal History: Reports: None Genitourinary History: Reports: None PHARMACEUTICAL REPRESENTATIVE History: Reports: Other (See Below) Other OB/BYN History: hysterectomy Musculoskeletal History: Reports: Back Pain, Chronic Neurological History: Reports: None Psychiatric History: Reports: None Endocrine/Metabolic History: Reports: Diabetes, Type II, Hypothyroidism, Obesity /BMI 30+ Hematologic History: Reports: None Immunologic History: Reports: None Oncologic (Cancer) History: Reports: None Dermatologic History: Reports: None - Infectious Disease History Infectious Disease History: Reports: Hepatitis C - Past Surgical History Head Surgeries/Procedures: Reports: None HEENT Surgical History: Reports: None Cardiovascular Surgical History: Reports: None Respiratory Surgical History: Reports: None GI Surgical History: Reports: None Female Surgical History: Reports: Other (See Below) Neurological Surgical History: Reports: None Musculoskeletal Surgical History: Reports: ORIF, Other (See Below) Oncologic Surgical History: Reports: None Dermatological Surgical History: Reports: None Social & Family History - Family History Family Medical History: Noncontributory Cardiac: Reports: Other (See Below) Other Cardiac Family History: sister had heart problems Musculoskeletal: Reports: Arthritis Endocrine/Metabolic: Reports: Diabetes, type II Oncologic: Reports: Other (See Below) Other Oncologic Family History: stomach - Tobacco Use Smoking Status *Q: Current Every Day Smoker Years of Tobacco use: 50 Packs/Tins Daily: 0.1 - Caffeine Use Caffeine Use: Reports: Coffee - Recreational Drug Use Recreational Drug Use: No - Living Situation & Occupation Living situation: Reports: Alone H&P Review of Systems - Review of Systems: Review Of Systems: ROS reveals no pertinent complaints other than HPI. Exam - Vital Signs Vital Signs: Last Vital Signs Temp 36.0 C 10/16/17 17:53 Pulse 73 10/16/17 20:20 Resp 12 10/16/17 20:20 BP 178/76 H 10/16/17 20:20 Pulse Ox 98 10/16/17 20:20 Weight: 81.647 kg - Exam General: Alert, Oriented Neck: Supple, Trachea Midline Lungs: Clear to Auscultation, Normal Respiratory Effort Cardiovascular: Regular Rate, Regular Rhythm GI/Abdominal Exam: Soft, Non-Tender Extremities: Normal Inspection, Non-Tender, No Pedal Edema Skin: Warm, Dry, Intact Neurological: No: Focal Deficit - Patient Data Lab Results Last 24 hrs: Laboratory Results - last 24 hr 10/16/17 10/16/17 10/16/17 Range/Units 17:59 17:59 17:59 WBC 9.48 (4.0-11.0) K/uL RBC 4.08 L (4.30-5.90) M/uL Hgb 12.4 (12.0-16.0) g/dL Hct 38.2 (36.0-46.0) % MCV 93.6 (80.0-98.0) fL MCH 30.4 (27.0-32.0) pg MCHC 32.5 (31.0-37.0) g/dL RDW Std Deviation 56.4 (28.0-62.0) fl RDW Coeff of Alirio 16 H (11.0-15.0) % Plt Count 197 (150-400) K/uL MPV 9.50 (7.40-12.00) fL Neut % (Auto) 47.8 L (48.0-80.0) % Lymph % (Auto) 36.7 (16.0-40.0) % [place] % (Auto) 6.1 (0.0-15.0) % Eos % (Auto) 8.6 H (0.0-7.0) % Baso % (Auto) 0.8 (0.0-1.5) % Neut # (Auto) 4.5 (1.4-5.7) K/uL Lymph # (Auto) 3.5 H (0.6-2.4) K/uL [place] # (Auto) 0.6 (0.0-0.8) K/uL Eos # (Auto) 0.8 H (0.0-0.7) K/uL Baso # (Auto) 0.1 (0.0-0.1) K/uL Nucleated RBC % 0.0 /100WBC Nucleated RBCs # 0 K/uL INR 0.96 Sodium 136 (136-145) mmol/L Potassium 2.9 L (3.5-5.1) mmol/L Chloride 96 L (98-107) mmol/L Carbon Dioxide 29.9 (21.0-32.0) mmol/L BUN 9 (7.0-18.0) mg/dL Creatinine 2.5 H (0.6-1.0) mg/dL Est Cr Clr Drug Dosing 18.08 mL/min Estimated GFR (MDRD) 19.0 ml/min Glucose 160 H (74-106) mg/dL Calcium 9.2 (8.5-10.1) mg/dL Total Bilirubin 0.4 (0.2-1.0) mg/dL AST 28 (15-37) IU/L ALT 30 (14-63) IU/L Alkaline Phosphatase 149 H (46-116) U/L Troponin I < 0.050 (0.000-0.056) ng/mL Total Protein 9.1 H (6.4-8.2) g/dL Albumin 3.7 (3.4-5.0) g/dL Globulin 5.4 H (2.0-3.5) g/dL Albumin/Globulin Ratio 0.7 L (1.3-2.8) Lipase 223 (73-393) U/L Result Diagrams: 10/16/17 17:59 10/16/17 17:59 Problem List Initiated/Reviewed/Updated: Yes Orders Last 24hrs: Active Orders 24 hr Category Date Time Status Admission Status [Patient Status] [ADT] Stat ADT 10/16/17 20:16 Active Cardiac Monitoring [RC] . DIRECTED Care 10/16/17 17:58 Active EKG Documentation Completion [RC] STAT Care 10/16/17 17:58 Active Oxygen Therapy [RC] PRN Care 10/16/17 20:34 Ordered Pulse Oximetry [RC] ASDIRECTED Care 10/16/17 17:58 Active Up ad Kristan [RC] ASDIRECTED Care 10/16/17 20:34 Ordered VTE/DVT Education [RC] PER UNIT ROUTINE Care 10/16/17 20:34 Ordered Vital Signs [RC] Q4H Care 10/16/17 20:34 Ordered [place] [employer] Diet [DIET] Diet 10/16/17 Breakfast Ordered CULTURE URINE [RM] Stat Lab 10/16/17 17:59 Ordered UA W/MICROSCOPIC [URIN] Stat Lab 10/16/17 17:59 Ordered Gabapentin [Neurontin] Med 10/16/17 22:00 Ordered 300 mg PO TID Insulin Aspart [NovoLOG] Med 10/17/17 07:30 Ordered See Protocol SUBCUT TIDAC Isosorbide Mononitrate [Imdur] Med 10/17/17 09:00 Ordered 30 mg PO DAILY Levothyroxine Med 10/17/17 07:30 Ordered 75 mcg PO ACBREAKFAST Losartan Med 10/17/17 09:00 Ordered 100 mg PO DAILY Sertraline [Zoloft] Med 10/17/17 09:00 Ordered 100 mg PO DAILY Sodium Chloride 0.9% [Normal Saline] 1,000 ml Med 10/16/17 18:50 Active IV ONETIME Sodium Chloride 0.9% [Normal Saline] 500 ml Med 10/16/17 18:00 Active IV STAT Sodium Chloride 0.9% [Saline Flush] Med 10/16/17 17:59 Active 10 ml FLUSH ASDIRECTED PRN Sodium Chloride 0.9% [Saline Flush] Med 10/16/17 17:59 Active 2.5 ml FLUSH ASDIRECTED PRN Spironolactone [Spironolactone] Med 10/17/17 09:00 Ordered 50 mg PO DAILY cloNIDine [Catapres] Med 10/17/17 09:00 Ordered 0.1 mg PO DAILY metFORMIN Med 10/17/17 08:00 Ordered 750 mg PO BIDMEALS Saline Lock Insert [OM.PC] Stat Oth 10/16/17 17:58 Ordered Sequential Compression Device [OM.PC] Per Unit Routine Oth 10/16/17 20:34 Ordered Resuscitation Status Routine Resus Stat 10/16/17 20:34 Ordered Medication Orders Clonidine HCl (Catapres) 0.1 mg PO DAILY RONY Gabapentin (Neurontin) 300 mg PO TID RONY Sodium Chloride (Normal Saline) 500 mls @ 999 mls/hr IV STAT RONY Last Admin: 10/16/17 18:14 Dose: 999 mls/hr Sodium Chloride (Normal Saline) 1,000 mls @ 125 mls/hr IV ONETIME ONE Stop: 10/17/17 02:49 Last Infusion: 10/16/17 19:25 Dose: 125 mls/hr Admin: 10/16/17 18:50 Dose: 999 mls/hr Insulin Aspart (Novolog) 0 unit SUBCUT TIDAC RONY; Protocol Isosorbide Mononitrate (Imdur) 30 mg PO DAILY [facility] Sodium Chloride (Saline Flush) 10 ml FLUSH ASDIRECTED PRN PRN Reason: Keep Vein Open Sodium Chloride (Saline Flush) 2.5 ml FLUSH ASDIRECTED PRN PRN Reason: Keep Vein Open Assessment/Plan Comment:: 72 yo female admitted for dehydration. She was given one liter of normal saline. She had resolution of her dizziness. She was discharged home to have follow up at the dialysis center Thursday.
[2017-10-16] MEDS: Gabapentin 300 MG Cap PO SCH (21:54)
[2017-10-17] MEDS: Gabapentin 300 MG Cap PO SCH (05:10)
[2017-10-17] MEDS: Insulin Aspart 100 Units/ML 3 ML Pen SUBCUT SCH ×2 (06:40→12:12)
[2017-10-17] MEDS ORDERED: Levothyroxine 75 MCG Tab PO SCH (07:30)
[2017-10-17] MEDS ORDERED: METFORMIN 750 MG PO SCH (08:00)
[2017-10-17] MEDS ORDERED: cloNIDine 0.1 MG Tab PO SCH (09:00)
[2017-10-17] MEDS ORDERED: Isosorbide Mononitrate 30 MG Tab.ER PO SCH (09:00)
[2017-10-17] MEDS ORDERED: Non-Formulary Medication 1 Each (Spironolactone [Spironolactone] 50 MG) PO SCH (09:00)
[2017-10-17] MEDS ORDERED: Sertraline 100 MG Tab PO SCH (09:00)
[2017-10-17] MEDS ORDERED: Non-Formulary Medication 1 Each (Losartan 100 MG) PO SCH (09:00)
[2017-10-17] MEDS ORDERED: Losartan 50 MG Tab PO SCH (09:17)
[2017-10-17] MEDS ORDERED: Spironolactone 25 MG Tab PO SCH (09:19)
[2017-10-17 13:30] VITALS: BP 148/81
[2017-10-18] MEDS ORDERED: Levothyroxine 25 MCG Tab PO SCH (07:30)
[2017-10-18] MEDS ORDERED: Levothyroxine 112 MCG Tab PO SCH (07:30)
[2017-10-18] MEDS ORDERED: Isosorbide Mononitrate 60 MG Tab.ER PO SCH (09:00)
== END 2017-10-17 13:15 | disposition home or self-care (01) ==
LOC: MW.ED 17:49 → MW.MS 20:16
PROVIDERS: ADMIT Internal Medicine; ATTEND Internal Medicine
DX: E86.0 Dehydration (principal); I13.2 Hypertensive heart and chronic kidney disease with heart failure and with stage 5 chronic kidney disease, or end stage renal disease; E11.22 Type 2 diabetes mellitus with diabetic chronic kidney disease; N18.6 End stage renal disease; I50.9 Heart failure, unspecified; E78.00 Pure hypercholesterolemia, unspecified; J44.9 Chronic obstructive pulmonary disease, unspecified; G89.29 Other chronic pain; M54.9 Dorsalgia, unspecified; E03.9 Hypothyroidism, unspecified; F17.210 Nicotine dependence, cigarettes, uncomplicated; E66.9 Obesity, unspecified; Z68.30 Body mass index [BMI] 30.0-30.9, adult; Z79.4 Long term (current) use of insulin; Z79.02 Long term (current) use of antithrombotics/antiplatelets; Z79.899 Other long term (current) drug therapy; Z88.5 Allergy status to narcotic agent; Z88.8 Allergy status to other drugs, medicaments and biological substances; Z99.2 Dependence on renal dialysis
CPT/HCPCS: 36415; 71045; 80053; 81001; 82962; 83690; 84484; 85025; 85610; 87086; 93005; A9270; J1815; J7040

== ENCOUNTER 2018-06-09 15:20 | Emergency (ER) | payer MEDICARE, MEDICAID ==
--- NOTE | 2018-06-09 15:23 | EDM.PDOC ---
ED HPI GENERAL MEDICAL PROBLEM - General Stated Complaint: SOB Time Seen by Provider: 06/09/18 15:22 Source of Information: Reports: Patient - History of Present Illness INITIAL COMMENTS - FREE TEXT/NARRATIVE: HISTORY AND PHYSICAL: History of present illness: [Patient with COPD presents with cough and shortness breath no fever nausea vomiting chills sweats cough present for 2 weeks she has been using her nebs and hand-held inhaler intermittently No chest pain or diaphoresis ] Review of systems: As per history of present illness and below otherwise all systems reviewed and negative. Past medical history: As per history of present illness and as reviewed below otherwise noncontributory. Surgical history: As per history of present illness and as reviewed below otherwise noncontributory. Social history: No reported history of drug or alcohol abuse. Family history: As per history of present illness and as reviewed below otherwise noncontributory. Physical exam: HEENT: Atraumatic, normocephalic, pupils reactive, negative for conjunctival pallor or scleral icterus, mucous membranes moist, throat clear, neck supple, nontender, trachea midline. Lungs: Clear to auscultation, breath sounds equal bilaterally, chest nontender. Heart: S1S2, regular, negative for clicks, rubs, or JVD. Abdomen: Soft, nondistended, nontender. Negative for masses or hepatosplenomegaly. Negative for costovertebral tenderness. Pelvis: Stable nontender. Genitourinary: Deferred. Rectal: Deferred. Extremities: Atraumatic, negative for cords or calf pain. Neurovascular unremarkable. Neuro: Awake, alert, oriented. Cranial nerves II through XII unremarkable. Cerebellum unremarkable. Motor and sensory unremarkable throughout. Exam nonfocal. Diagnostics: [Influenza Chest 1 view ] Therapeutics: [DuoNeb Azithromycin Prednisone 20 mg daily 5 days Nebs 4 times a day Hand-held as needed Impression: 2 bronchitis deffinitive disposition and diagnosis as appropriate pending reevaluation and review of above. - Related Data Allergies Allergy/AdvReac Type Severity Reaction Status Date / Time hydrochlorothiazide Allergy Airway Verified 06/09/18 15:34 Tightness hydrocodone Allergy Rash Verified 06/09/18 15:34 lisinopril Allergy Airway Verified 06/09/18 15:34 Tightness Home Meds: Home Meds Albuterol Sulfate [Proair Hfa] 1 - 2 puff IH Q4H PRN 01/29/16 [History] Gabapentin [Neurontin] 300 mg PO TID 05/11/15 [History] Losartan [Cozaar] 100 mg PO DAILY 05/11/15 [History] traMADol [Ultram] 50 mg PO QID PRN 05/11/15 [History] Sertraline HCl [Zoloft] 100 mg PO DAILY 12/19/15 [History] Albuterol [Proventil Neb Soln] 2.5 mg INH QID PRN 10/17/17 [History] Insuln Asp Prot/Insulin Aspart [NovoLOG Mix 70-30] 40 unit SUBCUT BIDMEALS 10/17 [History] Isosorbide Mononitrate [Imdur] 60 mg PO DAILY 10/17/17 [History] Levothyroxine Sodium 137 mcg PO ACBREAKFAST 10/17/17 [History] Pantoprazole Sodium [Protonix] 40 mg PO DAILY 10/17/17 [History] Sevelamer HCl [Renagel] 1,600 mg PO TIDMEALS 10/17/17 [History] amLODIPine Besylate [Amlodipine Besylate] 5 mg PO DAILY 10/17/17 [History] metOLazone [Metolazone] 5 mg PO ASDIRECTED 10/17/17 [History] Acetaminophen [Tylenol] 2 tab PO ASDIRECTED PRN 01/21/18 [History] Past Medical History HEENT History: Reports: None Cardiovascular History: Reports: CAD, Heart Failure, Heart Murmur, High Cholesterol, Hypertension, [place] (non-ST elevation [place] (NSTEM) a year ago with PTCA. 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: Musculoskeletal History: Reports: Back Pain, Chronic, Fracture Neurological History: Reports: None Psychiatric History: Reports: None Endocrine/Metabolic History: Reports: Diabetes, Type II, Hypothyroidism Hematologic History: Reports: Anticoagulation Therapy Immunologic History: Reports: None Oncologic (Cancer) History: Reports: None Dermatologic History: Reports: None - Infectious Disease History Infectious Disease History: Reports: Hepatitis C - Past Surgical History Head Surgeries/Procedures: Reports: None HEENT Surgical History: Reports: None Cardiovascular Surgical History: Reports: Other (See Below) Other Cardiovascular Surgeries/Procedures: PTCA Respiratory Surgical History: Reports: None GI Surgical History: Reports: Cholecystectomy Female Surgical History: Reports: Hysterectomy, Nephrectomy, Other (See Below ) Other Female Surgeries/Procedures: Right kidney removed for a donor kidney 1988, hx of bladder surgery, left arm A-V fistula a year ago Endocrine Surgical History: Reports: None Neurological Surgical History: Reports: None Musculoskeletal Surgical History: Reports: ORIF, Other (See Below) Other Musculoskeletal Surgeries/Procedures:: ORIF rt tib-fib fx, tx for fx left wrist Oncologic Surgical History: Reports: None Dermatological Surgical History: Reports: None Social & Family History - Family History Family Medical History: Noncontributory Cardiac: Reports: Other (See Below) Other Cardiac Family History: sister had heart problems Musculoskeletal: Reports: Arthritis Endocrine/Metabolic: Reports: Diabetes, type II Oncologic: Reports: Other (See Below) Other Oncologic Family History: stomach - Caffeine Use Caffeine Use: Reports: Coffee - Living Situation & Occupation Living situation: Reports: Alone ED ROS GENERAL - Review of Systems Review Of Systems: See Below ED EXAM, GENERAL - Physical Exam Exam: See Below Course - Vital Signs Last Recorded V/S: Last Vital Signs Temp 97.8 F 06/09/18 15:35 Pulse 69 06/09/18 15:35 Resp 18 06/09/18 15:35 BP 121/63 06/09/18 15:35 Pulse Ox 96 06/09/18 15:35 - Orders/Labs/Meds Orders: Active Orders 24 hr Category Date Time Status EKG 12 Lead [EKG Documentation Completion] [RC] STAT Care 06/09/18 15:27 Active RT Aerosol Therapy [RC] ASDIRECTED Care 06/09/18 15:30 Active Meds: Medications Discontinued Medications Generic Name Dose Route Start Last Admin Trade Name Coltenq PRN Reason Stop Dose Admin Albuterol/Ipratropium 3 ml 06/09/18 15:30 06/09/18 15:42 Duoneb 3.0-0.5 Mg/3 Ml NEB 06/09/18 15:31 3 ml ONETIME ONE Administration Departure - Departure Time of Disposition: 16:33 Disposition: Home, Self-Care 01 Condition: Good Clinical Impression: Acute bronchitis - Discharge Information Additional Instructions: The following information is given to patients seen in the emergency department who are being discharged to home. This information is to outline your options for follow-up care. We provide all patients seen in our emergency department with a follow-up referral. The need for follow-up, as well as the timing and circumstances, are variable depending upon the specifics of your emergency department visit. If you don't have a primary care physician on staff, we will provide you with a referral. We always advise you to contact your personal physician following an emergency department visit to inform them of the circumstance of the visit and for follow-up with them and/or the need for any referrals to a consulting specialist. The emergency department will also refer you to a specialist when appropriate. This referral assures that you have the opportunity for follow-up care with a specialist. All of these measure are taken in an effort to provide you with optimal care, which includes your follow-up. Under all circumstances we always encourage you to contact your private physician who remains a resource for coordinating your care. When calling for follow-up care, please make the office aware that this follow-up is from your recent emergency room visit. If for any reason you are refused follow-up, please contact the [facility] emergency department at and asked to speak to the emergency department charge nurse. - My Orders Last 24 Hours: My Active Orders 06/09/18 15:27 EKG 12 Lead [EKG Documentation Completion] [RC] STAT 06/09/18 15:30 RT Aerosol Therapy [RC] ASDIRECTED - Assessment/Plan Last 24 Hours: My Active Orders 06/09/18 15:27 EKG 12 Lead [EKG Documentation Completion] [RC] STAT 06/09/18 15:30 RT Aerosol Therapy [RC] ASDIRECTED
[2018-06-09] MEDS ORDERED: Albuterol/Ipratropium 3.0-0.5 MG/3 ML Neb Soln NEB ONE (15:30)
[2018-06-09 15:37] VITALS: BP 121/63
--- NOTE | 2018-06-09 16:23 | CR ---
EXAMINATION: Portable chest radiograph. HISTORY: Shortness of breath. FINDINGS: The trachea is midline. The cardiomediastinal silhouette is within normal limits. Chronic interstitial prominence and right apical scarring. Mild bibasilar atelectasis. No significant pleural effusion or pneumothorax. Left axillary stent. Osseous structures appear unremarkable. IMPRESSION: No acute cardiopulmonary process.
== END 2018-06-09 16:46 | disposition home or self-care (01) ==
LOC: MW.ED 15:20
DX: J20.9 Acute bronchitis, unspecified (principal); I13.0 Hypertensive heart and chronic kidney disease with heart failure and stage 1 through stage 4 chronic kidney disease, or unspecified chronic kidney disease; E11.22 Type 2 diabetes mellitus with diabetic chronic kidney disease; N18.9 Chronic kidney disease, unspecified; I50.9 Heart failure, unspecified; K21.9 Gastro-esophageal reflux disease without esophagitis; J44.9 Chronic obstructive pulmonary disease, unspecified; E11.21 Type 2 diabetes mellitus with diabetic nephropathy; E03.9 Hypothyroidism, unspecified
CPT/HCPCS: 71045; 71045-26; 87804; 93005; 94640; 99284-25; J7620-GY